=== PATIENT | male | born 1995 | race Caucasian/White ===

== ENCOUNTER → 2017-11-04 | Outpatient (CLI) | payer MEDICARE ==
--- NOTE | 2017-11-04 16:44 | RAD ---
EXAM DESCRIPTION: Abdomen 1 View CLINICAL HISTORY: CHRONIC CONSTIPATION COMPARISON: None Available. TECHNIQUE: KUB FINDINGS: Formed fecal material in the right may be a sign of constipation. No pathologic colonic dilatation. No rectal impaction. No small bowel dilatation. Bones are unremarkable. The alignment of the kidneys suggests the possibility of a horseshoe kidney. Correlate with other studies. There is no mass or calculus observed. IMPRESSION: Moderate fecal burden. Otherwise negative. Electronically signed by: Chaz Tesfaye MD 11/04/2017 4:42 PM CDT
== END ==
LOC: YCFC.O 11:52
PROVIDERS: ATTEND Nurse Practitioner Family
DX: K59.09 Other constipation (principal)